=== PATIENT | male | born 1970 | race Caucasian/White ===

== ENCOUNTER → 2016-05-07 | Outpatient (CLI) | payer OTHER ==
[2015-10-22 01:10] VITALS: BP 105/51
--- NOTE | 2016-05-09 08:03 | KCIC ---
PROCEDURE Two-view right calcaneus dated 05/07/2016. HISTORY Right heel pain for 2 weeks. No known injury. TECHNIQUE COMPARISON None. FINDINGS Two views right calcaneus show normal bony alignment. No displaced fracture. No acute osseous or articular abnormality. Mild enthesopathic change of the calcaneal tuberosity. IMPRESSION No acute radiographic abnormality. Electronically signed by: Andres Hdz (May 09, 2016 08:02:00)
== END | disposition home or self-care (01) ==
LOC: KCIC 16:27
PROVIDERS: ATTEND Family Medicine
DX: M25.571 Pain in right ankle and joints of right foot (principal)
CPT/HCPCS: 73650

== ENCOUNTER → 2017-11-28 | Outpatient (CLI) | payer OTHER ==
[2015-10-22 01:10] VITALS: BP 105/51
--- NOTE | 2017-11-29 08:24 | KCIC ---
MRI of the lumbar spine without contrast 11/28/2017 CLINICAL HISTORY: Low back pain which radiates down the left leg. TECHNIQUE: Unenhanced T1-weighted and T2-weighted sagittal and axial and inversion recovery sagittal images of the lumbar spine were obtained. FINDINGS: No previous imaging studies are available for comparison. Mild S-shaped curvature of the thoracolumbar spine is seen. Degenerative signal changes are seen involving the L2-3, L3-4, L4-5 and L5-S1 discs. Degenerative signal changes are seen within the marrow surrounding these discs. The conus medullaris is normal morphology, position, and signal characteristics. At the L1-2 disc space there is a mild generalized disc bulge. Degenerative changes are seen involving the facet joints bilaterally. There is mild ligamentum flavum hypertrophy bilaterally. These findings when combined do not result in significant central spinal canal or neural foraminal stenosis. The L2-3 disc space there is a mild generalized disc bulge. Superimposed on this disc bulge is a central/right paracentral focal disc protrusion. Measures 3 mm in AP diameter. Degenerative changes are seen involving the facet joints bilaterally. There is mild ligamentum flavum hypertrophy bilaterally. There is prominence of the posterior epidural fat. These findings when combined result in mild central spinal canal stenosis. No neural foraminal stenosis is seen. At the L3-4 disc space there is a mild to moderate generalized disc bulge. This is eccentric to the right. Degenerative changes are seen involving the facet joints bilaterally. There is moderate ligament flavum hypertrophy bilaterally. There is prominence of the posterior epidural fat. These findings when combined do not result in significant central spinal canal stenosis. Mild right neural foraminal stenosis is seen. The left neural foramen is patent. At the L4-5 disc space there is a mild generalized disc bulge. Degenerative changes are seen involving the facet joints bilaterally. There is mild ligamentum flavum hypertrophy bilaterally. These findings when combined do not result in significant central spinal canal or neural foraminal stenosis. At the L5-S1 disc space there is a mild generalized disc bulge. Degenerative changes are seen involving the facet joints bilaterally. These findings do not result in significant central spinal canal or neural foraminal stenosis. IMPRESSION: The changes of degenerative disc disease are seen involving the lumbar spine. These findings result in mild central spinal canal stenosis at L2-3. Mild right neural foraminal stenosis is seen at L3-4. Electronically signed by: Haile Mccormick MD (11/29/2017 8:19 AM) [email or web address]
== END | disposition home or self-care (01) ==
LOC: KCIC MRI 16:01
PROVIDERS: ATTEND Family Medicine
DX: M51.36 Other intervertebral disc degeneration, lumbar region (principal); M48.061 Spinal stenosis, lumbar region without neurogenic claudication; M79.605 Pain in left leg; I10 Essential (primary) hypertension; I25.10 Atherosclerotic heart disease of native coronary artery without angina pectoris
CPT/HCPCS: 72148

== ENCOUNTER → 2019-06-05 | Outpatient (CLI) | payer OTHER ==
[2015-10-22 01:10] VITALS: BP 105/51
--- NOTE | 2019-06-05 16:51 | KCIC ---
EXAM: AP, oblique and lateral views left knee DATE: 06/05/2019 12:00 AM INDICATION: Left knee pain COMPARISON: No Prior FINDINGS: Severe left knee joint osteoarthritis with tricompartmental osteophytes and medial and lateral compartment joint space narrowing. No acute fracture is seen. Small joint effusion. Small joint body in the suprapatellar recess. IMPRESSION: 1. No evidence of acute fracture or dislocation. 2. Small left knee 3. Left knee joint osteoarthritis Electronically signed by: Hernesto Hardy MD (06/05/2019 4:48 PM) [id number]
== END | disposition home or self-care (01) ==
LOC: KCIC 15:58
PROVIDERS: ATTEND Nurse Practitioner Family
DX: M17.12 Unilateral primary osteoarthritis, left knee (principal); M25.462 Effusion, left knee; M25.762 Osteophyte, left knee
CPT/HCPCS: 73562

== ENCOUNTER → 2019-06-27 | Outpatient (CLI) | payer OTHER ==
[2015-10-22 01:10] VITALS: BP 105/51
--- NOTE | 2019-06-27 15:19 | KCIC ---
MR of the left knee HISTORY: Left knee pain. Previous meniscal repair. Left knee pain medially for 2 months. TECHNIQUE: Routine multiplanar sequences are obtained. FINDINGS: Medial meniscus is distorted and irregular, with blunting of the free margin. Findings may be due to prior meniscectomy, although recurrent tearing is still possible. No evidence of lateral meniscal tear. Anterior and posterior cruciate ligaments are intact. Medial collateral ligament is intact. Iliotibial band unremarkable. Fibular collateral ligament, biceps femoris tendon and popliteus tendon are intact. Mild hypointense thickening of the medial patellar tendon proximally, compatible with mild tendinosis. No acute tear of the extensor mechanism. Small joint effusion. No significant Drummond's cyst. Severe chondral thinning at the medial joint compartment with subchondral marrow edema and cystic change. Question subtle hypointense band at the subchondral medial tibial plateau, possibly a small incomplete fracture. Degenerative changes at the patellofemoral joint with osteophytes. Mild degenerative change at the lateral joint compartment. No evidence of acute fracture. No aggressive bone destruction. IMPRESSION: 1. Medial meniscus is distorted and blunted, could be due to prior meniscectomy, but tearing is not excludable. 2. DJD, most severe at the medial joint compartment. 3. Subchondral marrow edema at the medial tibial plateau, consistent with degenerative edema versus a small nondisplaced stress fracture. 4. DJD. Electronically signed by: Andres Montaño MD (06/27/2019 3:16 PM) [id number]
== END | disposition home or self-care (01) ==
LOC: KCIC MRI 14:30
PROVIDERS: ATTEND Orthopaedic Surgery Sports Medicine
DX: M17.12 Unilateral primary osteoarthritis, left knee (principal); M25.562 Pain in left knee; M25.762 Osteophyte, left knee; M19.90 Unspecified osteoarthritis, unspecified site
CPT/HCPCS: 73721